=== PATIENT | female | born 1970 | race Caucasian/White ===

== ENCOUNTER 2016-04-24 12:30 | Emergency (ER) | payer OTHER ==
[2016-04-24] MEDS ORDERED: DIPHENHYDRAMINE 50 MG/ML VIAL ONE (15:16)
[2016-04-24] MEDS ORDERED: SODIUM CHLORIDE 0.9% 1,000 ML ONE (15:16)
[2016-04-24] MEDS ORDERED: PROMETHAZINE 25 MG/ML VIAL ONE (15:16)
[2016-04-24] MEDS ORDERED: KETOROLAC 30 MG/ML VIAL ONE (15:16)
== END 2016-04-24 16:17 | disposition home or self-care (01) ==
LOC: ER 12:30
DX: G44.89 Other headache syndrome (principal)
CPT/HCPCS: 96361; 96365; 96375

== ENCOUNTER 2016-05-10 16:37 | Emergency (ER) | payer OTHER ==
[2016-05-10] MEDS ORDERED: ASPIRIN 81 MG CHEW TAB ONE (16:50)
[2016-05-10] MEDS ORDERED: KETOROLAC 30 MG/ML VIAL ONE (20:57)
== END 2016-05-10 21:28 | disposition home or self-care (01) ==
LOC: ER 16:37
DX: R07.89 Other chest pain (principal)
CPT/HCPCS: 36415; 71010; 80053; 82550; 83735; 84439; 84443; 84484; 85025; 85610; 85730; 93005; 96374